=== PATIENT | female | born 1975 | race Caucasian/White ===

== ENCOUNTER 2020-09-14 08:00 | Outpatient (RCR) | payer OTHER, SELFPAY ==
--- NOTE | 2020-08-03 11:31 | PTOPEVAL ---
PHYSICAL THERAPY EVALUATION AND PLAN OF CARE 08-03-2020 The PT evaluation was completed for the diagnosis of back pain and L thigh pain. Thank you for referring Marika Mcdonald to [facility].? She is scheduled to be seen for therapy? 2x/week for 4 weeks. Please review, sign, date and return this plan of care DIMAS. I agree with and certify that the following plan of care is medically necessary. Referring Physician Date Attending Provider: Erick Moreau MD *PT Outpatient Evaluation Start: 08/03/20 10:40 Document 08/03/20 10:30 RENETTA (Rec: 08/03/20 11:30 RENETTA [id number]) Outpatient Past Medical History Past Medical History Source of Past Medical History Patient Neurological History Hx Neurological Disorders No Significant History Cardiovascular History Hx Cardiac Disorders No Significant History Respiratory History Hx Respiratory Disorders No Significant History Gastrointestinal History Hx Gastrointestinal Disorders No Significant History Genitourinary History Hx Genitourinary Disorders No Significant History Musculoskeletal History Hx Back Pain Yes: this incident Hematological History Hx Hematological Disorders No Significant History Endocrine History Hx Diabetes Yes: with HEENT History Hx HEENT Disorders No Significant History Reproductive History Hx Section Yes: 2006 Other History Hx Other Surgeries Yes: tonsil removed, appendectomy Evaluation Information Problem Diagnosis pain in L thigh and low back Onset May 25, 2020 Subjective Information onset May hamstring pain Query Text:As Reported By Patient/ and burning and progressed to Family deep in buttock and into L LE ; Oswestry self assessment functional questionnaire 56% limitation in activity. Diagnostic Tests X-Rays For This Problem Yes: lumbar and hip: mild facet degenerative changes Prior Level of Function Activity Level (Last 3 Months) Occupation work as RN at office- standing, walking, active Comments Additional Prior Level of Function previously walked 4 miles for Comments fitness, not able to do now due to pain, has been able to walk about 1 mile for fitness; Pain Assessment Timing of Pain Assessment Timing of Pain Assessment Assessment Pain Scale Pain Scale Used Numeric (1 - 10) Self Report Pain Assessment Bilateral Back Reported Pain Level 7 Pain Radiation Left Leg Radicular Pain Location L buttock, lateral thigh, calf
--- NOTE | 2020-09-02 10:14 | PTOPEVAL ---
PHYSICAL THERAPY RE-EVALUATION AND UPDATED PLAN OF CARE 09-02-2020 See clinical summary below for her changes since initial evaluation for the diagnosis of radicular low back pain. PT is to continue 1-2 x/week for 5 weeks. Thank you for referring Marika Mcdonald to [facility].? Please review, sign, date and return this updated plan of care [facility]. I agree with and certify that the following plan of care is medically necessary. Referring Physician Date Attending Provider: Erick Moreau MD *PT Outpatient Re-Evaluation Document 09/02/20 08:14 RENETTA (Rec: 09/02/20 08:43 RENETTA [id number]) Subjective Information Gabbi reports: back is better- Query Text:As Reported By Patient/ less pain in L leg, but foot Family always numb; more ache and dull in L low back; sleeping better, awaken 2x/night due to pain, when rolling and moving hips in bed; sitting about 10 min,then ready to stand up and move; walking and exercise help; to have first back injection Sep 14; is doing her home exercises; traction is helping and wants to continue PT treatments; Pain Assessment Timing of Pain Assessment Timing of Pain Assessment Assessment Pain Scale Pain Scale Used Numeric (1 - 10) Self Report Pain Assessment Bilateral Back Reported Pain Level 5 Pain Description Aching,Dull,Tingling Radicular Pain Location foot is always numb; pain shooting down L leg varies- sometimes supine-none Pain Frequency Acute Lowest Pain Intensity 5 Greatest Pain Intensity 8 Pain Aggravating Factors Exercise/Activity,Sitting Other Pain Aggravating Factors sitting tolerance 10 min; rolling in bed; awaken from sleeping 2x/night Pain Relief Interventions Used By Exercise,Heat,Inactivity/Rest, Patient Medication,Position Change, Walking Other Alleviating Interventions is taking tylenol and ibuprofen 2x/day; Additional Pain Comments discussed home inversion table to get spinal distraction-- she does not have Pain Score Pain Score 5: Self Report Cervical and Lumbar ROM Lumbar ROM Lumbar Comments standing trunk flexion- hands to knees without an increase in pain; if fl
--- NOTE | 2020-09-19 08:07 | PCPTNOTE ---
Patient called & cancelled scheduled appointment this date due to being called into work.
--- NOTE | 2020-09-27 08:13 | PCPTNOTE ---
pt called and cancelled . was called into work . Pt called at 7:44am for 8am appointment.
--- NOTE | 2020-10-14 13:47 | PCPTNOTE ---
called pt on phone, stated she has had 2 injections, back is better, pain 5/10; has been working more and busy, not able to get away to come in for PT sessions, continues to do her home exercises. Sees the dr in 1&1/2 weeks. Discussed with her to call if any questions, continue HEP, watch body mechanics. If she feels she wants to continue PT, need to call for appt in next few weeks to resume due to plan of care up last week, 10-07-2020; she voiced understanding.
--- NOTE | 2020-11-04 11:01 | PCPTNOTE ---
PHYSICAL THERAPY DISCHARGE 11-04-2020 Attending Provider: Erick Moreau MD Patient:Marika Mcdonald Date of :1975 Ms. Mcdonald has received a total of 10 PT sessions, from August 03 to September 14, for the diagnosis of back pain. She had improved with home exercises, education and mechanical traction. She then was busier at work and not able to get here for treatments, then stopped attending therapy, therefore she will be discharged at this time. The goals were not assessed. Thank you for referring Gabbi to [facility]. Please review, sign, date and return this discharge summary DIMAS. I have been updated about the patient's current status and I agree with discharge from the above service at this time. Referring Physician Date
== END 2020-11-01 23:59 | disposition home or self-care (01) ==
LOC: ANHPT 08:00
PROVIDERS: PCP Nurse Practitioner Adult Health; Visit Provider Orthopaedic Surgery
DX: M79.652 Pain in left thigh (principal); M25.559 Pain in unspecified hip; M54.5 Low back pain; R20.0 Anesthesia of skin
CPT/HCPCS: 97012; 97110; 97140; 97161

== ENCOUNTER → 2020-10-06 16:53 | Outpatient (CLI) | payer OTHER, SELFPAY ==
--- NOTE | ~2020-10-06 | MM_ITS ---
EXAMINATION: MM screening sriram BI w milla HISTORY: Screening TECHNIQUE: Craniocaudal and mediolateral oblique 3-D tomosynthesis images were obtained and synthetic 2-D images were generated. CAD analysis was submitted and interpreted. COMPARISON: No prior mammogram is available for comparison at this institution. BREAST PARENCHYMAL COMPOSITION: The breasts are heterogeneously dense, which may obscure small masses . FINDINGS: There is a cluster of pleomorphic calcifications in the upper inner quadrant of the left br east posteriorly. No mammographic evidence for malignancy in the right breast. IMPRESSION: 1. Clustered pleomorphic left breast calcifications. 2. Magnification views are recommended. BI-RADS Category 0: Incomplete: Needs additional imaging evaluation. Reviewed, dictated and finalized at location A. ICE ADMINISTRATOR
== END ==
PROVIDERS: PCP Nurse Practitioner Adult Health; Visit Provider Nurse Practitioner Adult Health
DX: Z12.31 Encounter for screening mammogram for malignant neoplasm of breast (principal)
CPT/HCPCS: 77063; 77067

== ENCOUNTER → 2020-10-12 08:23 | Outpatient (CLI) | payer OTHER, SELFPAY ==
--- NOTE | ~2020-10-12 | MM_ITS ---
EXAMINATION: MM diagnostic mammo unilat LT HISTORY: Indeterminate left breast calcifications on screening mammogram TECHNIQUE: Additional views of the left breast were performed. CAD analysis was submitted and interpr eted. COMPARISON: 10/06/2020 FINDINGS: There are grouped calcifications in the middle third of the slightly upper breast at the 11 :00 location 5 cm from the nipple which appear to be dystrophic in morphology. No associated mass is identified. IMPRESSION: 1. Probably benign left breast calcifications. 2. Recommend 6 month follow-up left diagnostic mammogram. BI-RADS category 3, probably benign findings. Reviewed, dictated and finalized at location A. ING OPERATOR
== END ==
PROVIDERS: Visit Provider Nurse Practitioner Adult Health
DX: R92.8 Other abnormal and inconclusive findings on diagnostic imaging of breast (principal)
CPT/HCPCS: 77065

== ENCOUNTER → 2021-05-23 08:07 | Outpatient (CLI) | payer OTHER, SELFPAY ==
--- NOTE | ~2021-05-23 | MM_ITS ---
EXAMINATION: MM diagnostic sriram LT w milla HISTORY: Calcifications TECHNIQUE: ML, MLO and cc 3-D tomosynthesis images of the left breast were performed and synthetic 2- D images were generated. Magnification views of the left breast. CAD analysis was submitted and inter preted. COMPARISON: 10/12/2020diagnostic mammogram 10/06/2020 bilateral digital screening mammogram BREAST PARENCHYMAL COMPOSITION: The breasts are heterogeneously dense, which may obscure small masses . FINDINGS: Stable amorphous calcifications characteristic of benign fibroadenoma are identified in the upper inner left breast. IMPRESSION: 1. Benign calcifications; no mammographic evidence of malignancy 2. Routine mammographic screening is recommended. BI-RADS Category 2: Benign finding(s). Reviewed, dictated and finalized at location A.
== END ==
PROVIDERS: Visit Provider Nurse Practitioner Adult Health
DX: R92.8 Other abnormal and inconclusive findings on diagnostic imaging of breast (principal)
CPT/HCPCS: 77061; 77065; G0279

== ENCOUNTER → 2023-04-24 15:02 | Outpatient (CLI) | payer OTHER, SELFPAY ==
--- NOTE | ~2023-04-24 | MM_ITS ---
EXAMINATION: MM screening sriram BI w milla HISTORY: Screening mammogram TECHNIQUE: Craniocaudal and mediolateral oblique 3-D tomosynthesis images were obtained and synthetic 2-D images were generated. CAD analysis was submitted and interpreted. COMPARISON: 05/23/2021, 10/12/2020, 10/06/2020 BREAST PARENCHYMAL COMPOSITION: The breasts are heterogeneously dense, which may obscure small masses . FINDINGS: Scattered benign-appearing calcifications are present. No suspicious mass, calcification, o r architectural distortion are identified in either breast to suggest malignancy. There has been no s uspicious interval change. IMPRESSION: 1. No mammographic evidence of malignancy. 2. Recommend routine screening mammography in one year. BI-RADS Category 2: Benign finding(s). Reviewed, dictated and finalized at location A.
== END ==
PROVIDERS: PCP Nurse Practitioner Family; Visit Provider Nurse Practitioner Family
DX: Z12.31 Encounter for screening mammogram for malignant neoplasm of breast (principal)
CPT/HCPCS: 77063; 77067

== ENCOUNTER → 2023-09-25 14:52 | Outpatient (CLI) | payer OTHER, SELFPAY ==
--- NOTE | ~2023-09-25 | US_ITS ---
EXAMINATION: US pelvic complete DATE: 09/25/2023 15:17 INDICATION: Excessive and frequent menstruation. Enlarged uterus. TECHNIQUE: Multiple transabdominal and transvaginal sonographic images of the pelvis were obtained. COMPARISON: None. FINDINGS: TRANSABDOMINAL ULTRASOUND: The uterus measures 13.8 x 6.1 x 8.2 cm. There is no free fluid in the pelvis. TRANSVAGINAL ULTRASOUND: The endometrial complex measures 12 mm in thickness. There is a 5.0 cm intramural fibroid. There is a 4.7 cm intramural fibroid. There is a 3.6 cm intramural fibroid. The right ovary measures 1.4 x 2.0 x 1.5 cm. The left ovary measures 2.4 x 1.2 x 2.5 cm. There is normal vascular flow in the ovaries. IMPRESSION: 1. Uterine fibroids. Reviewed, dictated and finalized at location E. IMPRESSION: 1. Uterine fibroids.
== END ==
PROVIDERS: PCP Advanced Practice Midwife; Visit Provider Advanced Practice Midwife
DX: D25.1 Intramural leiomyoma of uterus (principal); N85.2 Hypertrophy of uterus; N92.0 Excessive and frequent menstruation with regular cycle
CPT/HCPCS: 76856

== ENCOUNTER 2023-11-21 06:33 | Day surgery (SDC) | payer OTHER, SELFPAY ==
[2023-11-08 14:19] VITALS: BMI 26.2
--- NOTE | 2023-11-20 07:53 | P.PNAN_ITS ---
Anes - Initial Pre Proc Eval Procedure: Operation Date: 11/21/23 09:00 Proposed Procedures p Screening Colonoscopy - Cr Lemon MD Date/Time: 11/20/23 07:53 Surgeon: Cr Lemon MD Pre Op Diagnosis: Neoplasm Screening Patient Data Age: 48 Gender: F Height: 1.57 m Weight: 65 kg Allergies Allergy/AdvReac Type Severity Reaction Status Date / Time codeine Allergy Mild Nausea and Unverified 03/16/09 13:58 Vomiting Home Medications Medication Instructions Recorded Confirmed Type alprazolam 0.25 mg tablet 0.25 mg PO DAILY 07/13/20 11/08/23 History multivitamin (Daily Multi-Vitamin 1 tablet PO DAILY 07/13/20 11/08/23 History tablet) propranolol 60 mg capsule,24 60 mg PO DAILY 07/13/20 11/08/23 History hr,extended release sertraline 50 mg tablet (Zoloft) 50 mg PO DAILY 07/13/20 11/08/23 History Results Review: All pre-operative results and documents have been reviewed as part of the pre- operative evaluation. [facility] Past Medical History Medical History (Updated 07/13/20 @ 11:12 by Erick Moreau MD) Diabetes Hemoglobin A1c less than 7.0% 6.4 Surgical History Surgical History H/O: section History of appendectomy Hx of tonsillectomy Social History Social History Smoking status: Never smoker Alcohol intake: former Substance use: never Substance use type: does not use Living arrangements: with friend(s) Occupation/Education: occupation Additional occupation/education comments: [employer] Gender identity (if verbalized by the patient): Female Spiritual care concerns: No Anes - Eval Final PreProcedure Day of Procedure 11/20/23 07:53 Patient weight: overweight Heart: regular rate and rhythm Lungs: clear to auscultation Airway: Mallampati scale class II Neurological: alert and oriented Last oral intake: >/= 8 hours ASA classification: II Emergent: no Anesthetic plan: proceed Anesthesia type and monitoring: general GIVS and standard monitoring Results Review: All pre-operative results and documents have been reviewed as part of the pre-operative evaluation. Informed Consent: The patient's anesthetic plan and its attendant risks and benefits were discussed with the patient/family/POA. Questions were solicited and answers provided to the satisfaction of the patient/family/POA.
--- NOTE | 2023-11-20 14:30 | PM.HPGS ---
History of Present Illness History of Present Illness Consent: Risks, benefits, and alternatives have been discussed and questions answered. Patient agrees to proceed with procedure. Chief complaint: Neoplasm Screening Narrative: Marika Mcdonald is a 48 year old female Referred for colon cancer screening. Review of Systems Review of Systems: All systems reviewed & are unremarkable except as noted in HPI and below PMFSH Past Medical History Medical History Anxiety Hemoglobin A1c less than 7.0% 6.4 Surgical History Surgical History H/O: section History of appendectomy Hx of tonsillectomy Social History Social History Smoking status: Never smoker Alcohol intake: former Substance use: never Substance use type: does not use Living arrangements: with friend(s) Occupation/Education: occupation Additional occupation/education comments: [employer] Gender identity (if verbalized by the patient): Female Spiritual care concerns: No Meds Home Medications and Allergies Home Medications Medication Instructions Recorded Confirmed Type alprazolam 0.25 mg tablet 0.25 mg PO DAILY 07/13/20 11/21/23 History multivitamin (Daily Multi-Vitamin 1 tablet PO DAILY 07/13/20 11/21/23 History tablet) propranolol 60 mg capsule,24 60 mg PO DAILY 07/13/20 11/21/23 History hr,extended release sertraline 50 mg tablet (Zoloft) 50 mg PO DAILY 07/13/20 11/21/23 History Allergies Allergy/AdvReac Type Severity Reaction Status Date / Time codeine Allergy Mild Nausea and Verified 11/21/23 07:42 Vomiting Exam Const: General: alert Orientation/consciousness: patient oriented x3 Resp: Auscultation: clear to auscultation bilaterally Cardio: Rhythm: regular rhythm GI: GI Palp: Yes Soft to palpation and No Tenderness to palpation present (GI) Neuro: General: patient oriented x3 Assessment and Plan Assessment and plan (1) Colon cancer screening: Code(s): Z12.11 - Encounter for screening for malignant neoplasm of colon Status: Acute Assessment and Plan: Colonoscopy with possible biopsy or polypectomy or cautery or injection of substances.
[2023-11-21 07:45] VITALS: BP 122/88; PULSE 82; RESP 18; TEMP 37.7; O2SAT 99
[2023-11-21] MEDS: LACTATED RINGERS 1,000 ML 150 ML IV CONT (07:58)
--- NOTE | 2023-11-21 08:02 | P.PNAN_ITS ---
Anes - Initial Pre Proc Eval Procedure: Operation Date: 11/21/23 09:00 Proposed Procedures p Screening Colonoscopy - Cr Lemon MD Date/Time: 11/21/23 08:02 Surgeon: Cr Lemon MD Pre Op Diagnosis: Neoplasm Screening Patient Data Age: 48 Gender: F Height: 1.57 m Weight: 67.65 kg Last Vital Signs Temp 37.7 C H 11/21/23 07:45 Pulse 82 11/21/23 07:45 Resp 18 11/21/23 07:45 BP 122/88 11/21/23 07:45 Pulse Ox 99 11/21/23 07:45 O2 Del Method Room Air 11/21/23 07:45 Allergies Allergy/AdvReac Type Severity Reaction Status Date / Time codeine Allergy Mild Nausea and Verified 11/21/23 07:42 Vomiting Home Medications Medication Instructions Recorded Confirmed Type alprazolam 0.25 mg tablet 0.25 mg PO DAILY 07/13/20 11/21/23 History multivitamin (Daily Multi-Vitamin 1 tablet PO DAILY 07/13/20 11/21/23 History tablet) propranolol 60 mg capsule,24 60 mg PO DAILY 07/13/20 11/21/23 History hr,extended release sertraline 50 mg tablet (Zoloft) 50 mg PO DAILY 07/13/20 11/21/23 History Patient hx anesthesia problems: none Family hx anesthesia problems: none Results Review: All pre-operative results and documents have been reviewed as part of the pre- operative evaluation. PMFSH Past Medical History Medical History Anxiety Hemoglobin A1c less than 7.0% 6.4 Surgical History Surgical History H/O: section History of appendectomy Hx of tonsillectomy Social History Social History Smoking status: Never smoker Alcohol intake: former Substance use: never Substance use type: does not use Living arrangements: with friend(s) Occupation/Education: occupation Additional occupation/education comments: [employer] Gender identity (if verbalized by the patient): Female Spiritual care concerns: No Anes - Eval Final PreProcedure Day of Procedure 11/21/23 08:02 Patient weight: overweight Heart: regular rate and rhythm Lungs: clear to auscultation Airway: Mallampati scale class II Neurological: alert and oriented Last oral intake: >/= 8 hours ASA classification: II Emergent: no Anesthetic plan: proceed Anesthesia type and monitoring: general GIVS and standard monitoring Results Review: All pre-operative results and documents have been reviewed as part of the pre- operative evaluation. Informed Consent: The patient's anesthetic plan and its attendant risks and benefits were discussed with the patient/family/POA. Questions were solicited and answers provided to the satisfaction of the patient/family/POA.
[2023-11-21 09:02] VITALS: BP 95/63; PULSE 59; RESP 14; O2SAT 100
[2023-11-21 09:12] VITALS: BP 99/78; PULSE 60; RESP 18; O2SAT 100
[2023-11-21 09:22] VITALS: BP 102/74; PULSE 56; RESP 20; O2SAT 100
--- NOTE | 2023-11-21 09:36 | WPDANESPN ---
Anes - Prog Note Post-Op Date/Time: 11/21/23 09:36 Cardiovascular status: normal Respiratory status: normal Airway patency: baseline Mental status: baseline Post-Op hydration status: normal Vital Signs: Last Vital Signs Temp 37.7 C H 11/21/23 07:45 Pulse 56 L 11/21/23 09:22 Resp 20 11/21/23 09:22 BP 102/74 11/21/23 09:22 Pulse Ox 100 11/21/23 09:22 O2 Del Method Room Air 11/21/23 09:22 Pain Score (VAS): 0 I/O: Intake & Output 11/20/23 11/21/23 11/21/23 23:59 07:59 15:59 Intake Total 500 Balance 500 Patient Feedback: Patient satisfied with anesthetic care.
== END 2023-11-21 09:31 | disposition home or self-care (01) ==
PROVIDERS: PCP Nurse Practitioner Family; Visit Provider Internal Medicine Gastroenterology
PROC: 0DJD8ZZ Inspection of Lower Intestinal Tract, Via Natural or Artificial Opening Endoscopic (ICD-10-PCS; CPT 45378; principal; 2023-11-21 09:00)
DX: Z12.11 Encounter for screening for malignant neoplasm of colon (principal); K64.8 Other hemorrhoids
CPT/HCPCS: 45378

== ENCOUNTER 2025-03-05 15:35 | Outpatient (CLI) | payer OTHER, SELFPAY ==
--- NOTE | ~2025-03-05 | MM_ITS ---
EXAMINATION: MM screening sriram BI w milla HISTORY: Screening TECHNIQUE: Craniocaudal and mediolateral oblique 3-D tomosynthesis images were obtained and synthetic 2-D images were generated. CAD analysis was submitted and interpreted. COMPARISON: Comparison to multiple prior studies sequentially, with oldest reviewed study dated 04/2020. BREAST PARENCHYMAL COMPOSITION: Dense: The breasts are heterogeneously dense, which may obscure small masses FINDINGS: There is no evidence of suspicious mass, calcification, or architectural distortion to sugg est malignancy in either breast. There has been no suspicious interval change. IMPRESSION: 1. No mammographic evidence of malignancy. 2. Recommend routine screening mammography in one year. BI-RADS Category 1: Negative Reviewed, dictated and finalized at location A.
== END 2025-03-05 15:36 | disposition home or self-care (01) ==
LOC: MICIMG 15:36
PROVIDERS: PCP Nurse Practitioner Adult Health; Visit Provider Nurse Practitioner Adult Health
DX: Z12.31 Encounter for screening mammogram for malignant neoplasm of breast (principal)
CPT/HCPCS: 77063; 77067

== ENCOUNTER 2025-03-10 15:12 | Outpatient (CLI) | payer OTHER, SELFPAY ==
--- NOTE | ~2025-03-10 | US_ITS ---
Pelvic ultrasound. Clinical History: Leiomyoma of uterus Technique: Realtime transabdominal and transvaginal scanning of the pelvis was performed. Color flow Doppler and Doppler spectral analysis were performed. Findings: The uterus is anteverted, and measures approximately 13.4 x 9.8 x 10.5 cm. The endometrial stripe has a thickness of 18 mm. Multiple fibroids are present. There is a 5.1 cm hypoechoic posteri or partially exophytic fibroid. There is a 4.7 cm central fibroid which may be partially submucosal i n nature. There is an additional 5.5 cm probable intramural fibroid. Additional smaller fibroids are probably present.. Neither ovary seen. No other adnexal mass seen.. There is no evidence of free fluid in the cul de sac. Impression: Enlarged uterus with multiple fibroids, as detailed above. Reviewed, dictated and finalized at [facility]. Impression: Enlarged uterus with multiple fibroids, as detailed above.
== END 2025-03-10 15:13 | disposition home or self-care (01) ==
LOC: MICIMG 15:12
PROVIDERS: PCP Nurse Practitioner Adult Health; Visit Provider Nurse Practitioner Adult Health
DX: D25.9 Leiomyoma of uterus, unspecified (principal)
CPT/HCPCS: 76830; 76856